=== PATIENT | female | born 1965 | race Two or more races ===

== ENCOUNTER → 2017-03-21 | Outpatient (CLI) | payer BC ==
[2017-03-21 15:29] LABS: Urine Bilirubin Negative (Negative); Urine Blood Negative /uL (Negative); Urine Color Yellow (Yellow); Urine Glucose 4+ mg/dL (Normal); Urine Ketone Negative (Negative); Urine Nitrite Negative (Negative); Urine Urobilinogen Normal (Negative)
== END | disposition home or self-care (01) ==
LOC: LAB 14:57
PROVIDERS: ATTEND Obstetrics & Gynecology
DX: N95.1 Menopausal and female climacteric states (principal)
CPT/HCPCS: 36415; 81003; 83001; 83002; 84403; 84443; 87086

== ENCOUNTER 2023-11-06 19:50 | Emergency (ER) | payer BC, MEDICARE ==
[~2023-11-06] VITALS: Ht 167.6 cm; Wt 84.4 kg
[2023-11-06 20:02] VITALS: TEMP 97.6; O2SAT 96
[2023-11-06] MEDS: ONDANSETRON ODT 4 MG TAB PO ONE (22:50)
[2023-11-06] MEDS: MORPHINE SULFATE INJ 2 MG/ml SYRG IM ONE (23:03)
[2023-11-06 23:33] VITALS: BP 185/66; RESP 20
[2023-11-06 23:45] VITALS: PULSE 67
== END 2023-11-07 02:10 | disposition home or self-care (01) ==
LOC: ER 19:50
DX: S63.501A Unspecified sprain of right wrist, initial encounter (principal); S43.401A Unspecified sprain of right shoulder joint, initial encounter; S50.11XA Contusion of right forearm, initial encounter; S09.90XA Unspecified injury of head, initial encounter; S20.20XA Contusion of thorax, unspecified, initial encounter; E11.9 Type 2 diabetes mellitus without complications; I10 Essential (primary) hypertension; F12.90 Cannabis use, unspecified, uncomplicated; W01.0XXA Fall on same level from slipping, tripping and stumbling without subsequent striking against object, initial encounter; Y93.89 Activity, other specified; Y92.89 Other specified places as the place of occurrence of the external cause; Y99.8 Other external cause status
CPT/HCPCS: 29125; 70450; 71250; 73200; 93005; 96372; 99285; J2270; Q0162